=== PATIENT | female | born 1985 | race Caucasian/White ===

== ENCOUNTER 2017-03-02 05:03 | Inpatient (IN) | payer BC ==
[2017-03-02] MEDS ORDERED: RINGER'S SOLUTION,LACTATED 1,000 ML IV PRN ×2 (05:36)
[2017-03-02] MEDS ORDERED: OXYTOCIN 20 UNITS in RINGER'S SOLUTION,LACTATED 1,000 ML IV ONE (07:00)
[2017-03-02] MEDS ORDERED: ceFAZolin SODIUM/DEXTROSE,ISO 2 GM/50 ML BAG IV ONE (07:00)
[2017-03-02] MEDS ORDERED: RINGER'S SOLUTION,LACTATED 1,000 ML IV ONE (08:10)
[2017-03-02] MEDS ORDERED: SENNOSIDES 8.6 MG TABLET PO PRN (09:46)
[2017-03-02] MEDS ORDERED: CALCIUM CARBONATE 500 MG TAB.CHEW PO PRN (09:46)
[2017-03-02] MEDS ORDERED: BISACODYL 10 MG SUPP.RECT RC PRN (09:46)
[2017-03-02] MEDS ORDERED: DEXTROSE 5%-LACTATED RINGERS 1,000 ML IV PRN (09:46)
[2017-03-02] MEDS ORDERED: oxyCODONE HCL/ACETAMINOPHEN 1 TAB TABLET PO PRN (09:46)
[2017-03-02] MEDS ORDERED: SIMETHICONE 80 MG TAB.CHEW PO PRN (09:46)
--- NOTE | 2017-03-02 10:06 | OR ---
Operative Report - Dictated Report Narrative: Indication: 32-year-old 2 para 1 with prior section and dichorionic diamniotic twins desires repeat Pre Operative Diagnosis: 38 week intrauterine dichorionic diamniotic twin , prior section, breech/cephalic presentation Post Operative Diagnosis: Same. Procedure: Repeat low transverse section. Surgeon: Tiffani Gamino DO Lead Slot Technician: OR Staff Anesthesia: Spinal, TAP block Estimated Blood Loss: 1100 mL Urine Output: 200 mL clear urine Fluids Replacement: 1500 mL Drains: Pruett to gravity Surgical Complications: None Specimens: Placenta to freezer Findings: Diamniotic dichorionic twins with clear fluid upon amniotomy of both sacs. Twin A: Breech presentation born at 0844 on [birth year] with Apgars 8 and 9, weighing 3346 g. Twin B: Cephalic presentation born at 0846 on 03/02/2018 with Apgars 9 and 9, weighing 3666 g. Normal uterus, tubes, ovaries Technique: The patient was taken to the operating room and placed in dorsal supine position with a left lateral tilt. After adequate spinal anesthesia, pruett catheter inserted, SCDs placed, and 2 g of Ancef given preoperatively, the abdominal cavity was entered using sharp and blunt dissection. Two rolled laps were placed in the pericolic gutters on either side of the uterus. A transverse incision was made in the lower uterine segment and extended laterally and upwardly with digital traction. Clear fluid was noted upon amniotomy of twin A's gestation sac. The was delivered easily in double footling breech presentation. The cord was clamped and cut and was handed off to awaiting transmission assembler. Amniotomy was performed on twin B's sac noting clear fluid. Baby B was delivered in cephalic presentation. The placentas were allowed to deliver spontaneously. A disposable cord clamp was placed on the cord of twin A's placenta. The uterus was cleared of clot and debris. Uterine incision was closed with 0 Vicryl using a running stitch. A second imbricating layer was placed. Excellent hemostasis was noted. The rolled laps were removed from the abdominal cavitiy. The peritoneum was closed with a running 3-0 Monocryl. The same suture was used to approximate the rectus and pyramidalis muscles. The fascia was closed with a running 0 Vicryl. The subcutaneous layer was closed with a running 3-0 Monocryl. The same suture was used to approximate the subdermal layer. The skin was closed with a running 4-0 Monocryl and Dermabond. Sponge, lap, needle, and instrument count were correct x 2. Disposition: To post anesthesia care unit in good condition
--- NOTE | 2017-03-02 10:09 | OR ---
Anesthesia Procedure Note - Anesthesia Procedure Note Narrative: Vital Signs - Last Taken Temp 36.6 C 03/02/17 09:40 Pulse 88 03/02/17 10:00 Resp 20 03/02/17 10:00 BP 113/61 03/02/17 10:00 Pulse Ox 98 03/02/17 10:00 O2 Oxygen Delivery Method Room Air 03/02/17 10:06 ANESTHESIA PROCEDURE NOTE Date of procedure: 03/02/2017. Time of procedure: . Performed by: Abelino Up CRNA Flatwork Finisher: Estephanie Benites RN . Preprocedure diagnosis: Status post a section. Desire for postoperative analgesia.. Post procedure diagnosis: Same. Procedure: Ultrasound-guided bilateral tap block Indications: Postoperative analgesia. Findings: Patient in PACU status post . Patient's right lateral abdominal wall was prepped with ChloraPrep. Ultrasound was used to guide a 22- gauge 2 inch Stimuplex regional block needle into the fascial layer between the internal oblique and trans-abdominis muscles. A total of 20 mL of 0.25% Marcaine with epinephrine 1 200,000 was injected under ultrasound guidance. Procedure was repeated on the patient's left side. EBL: Minimal. Fluids: N/A. Specimen: N/A. Post procedure condition: The patient tolerated the procedure well. No complications were noted. Thank you for this consultation Abelino Up CRNA
[2017-03-02] MEDS: IBUPROFEN 800 MG TABLET PO PRN ×3 (11:21→23:14)
[2017-03-02] MEDS ORDERED: RHO(D) IMMUNE GLOBULIN 300 MCG DISP.SYRIN IM ONE (14:58)
[2017-03-02] MEDS: oxyCODONE HCL/ACETAMINOPHEN 1 TAB TABLET PO PRN ×3 (15:35→23:14)
[2017-03-02] MEDS: ENOXAPARIN SODIUM 40 MG/0.4 ML SYRG SC SCH (17:06)
[2017-03-02] MEDS: DOCUSATE SODIUM 100 MG CAPSULE PO SCH (21:24)
[2017-03-02] MEDS: FERROUS SULFATE 325 MG TABLET PO SCH (21:24)
[2017-03-02] MEDS: ASCORBIC ACID 500 MG TABLET PO SCH (21:24)
[2017-03-03] MEDS: oxyCODONE HCL/ACETAMINOPHEN 1 TAB TABLET PO PRN ×5 (02:36→15:28)
[2017-03-03] MEDS: IBUPROFEN 800 MG TABLET PO PRN ×2 (05:35→12:09)
[2017-03-03] MEDS: PRENATAL VITS96/IRON FUM/FOLIC 1 TAB TABLET PO SCH (09:08)
[2017-03-03] MEDS: ASCORBIC ACID 500 MG TABLET PO SCH ×2 (09:08→20:51)
[2017-03-03] MEDS: DOCUSATE SODIUM 100 MG CAPSULE PO SCH ×2 (09:08→20:51)
[2017-03-03] MEDS: SERTRALINE HCL 100 MG TABLET PO SCH (09:08)
[2017-03-03] MEDS: FERROUS SULFATE 325 MG TABLET PO SCH ×2 (09:08→20:51)
--- NOTE | 2017-03-03 10:21 | PN ---
Subjective - Date and Time Seen Date: 03/03/17 Time: 10:20 Objective - Vitals Vitals: Last Vital Signs Temp 36.0 C L 03/03/17 08:55 Pulse 70 03/03/17 08:55 Resp 16 03/03/17 08:55 BP 117/60 03/03/17 08:55 Pulse Ox 95 03/03/17 08:55 Patient denies complaints. Ambulating well. Tolerating regular diet. Pain well controlled. Lochia wnl. Abdomen - soft, appropriately tender Incision - clean, dry, intact Uterus - firm, at umbilicus -2 No calf tenderness Impression: Post op day #2 s/p repeat section. Twin - delivered. Morbid obesity. Plan: Continue routine post-operative/ care Cauti Physician Documentation - Urinary Catheter Management Uretheral ([place]) Date of Insertion: 03/02/17 Time of Insertion: 08:20 Date of Removal: 03/02/17 Time of Removal: 21:00
[2017-03-03] MEDS: ONDANSETRON HCL/PF 2 MG/ML VIAL IV PRN ×2 (15:13→19:17)
[2017-03-03] MEDS ORDERED: DEXTROSE 5%-LACTATED RINGERS 1,000 ML IV PRN (17:55)
[2017-03-03] MEDS: ENOXAPARIN SODIUM 40 MG/0.4 ML SYRG SC SCH (17:58)
[2017-03-03] MEDS ORDERED: BUTORPHANOL TARTRATE 2 MG/ML VIAL IV PRN (20:00)
[2017-03-03] MEDS ORDERED: METOCLOPRAMIDE HCL 5 MG/ML VIAL IV ONE (20:03)
[2017-03-03] MEDS: diphenhydrAMINE HCL 50 MG/ML VIAL IV PRN (20:49)
[2017-03-04] MEDS: IBUPROFEN 800 MG TABLET PO PRN ×3 (08:00→20:21)
[2017-03-04] MEDS: PRENATAL VITS96/IRON FUM/FOLIC 1 TAB TABLET PO SCH (08:00)
[2017-03-04] MEDS: DOCUSATE SODIUM 100 MG CAPSULE PO SCH ×2 (08:00→20:21)
[2017-03-04] MEDS: FERROUS SULFATE 325 MG TABLET PO SCH ×2 (08:00→20:21)
[2017-03-04] MEDS: ASCORBIC ACID 500 MG TABLET PO SCH ×2 (08:00→20:21)
[2017-03-04] MEDS: SERTRALINE HCL 100 MG TABLET PO SCH (08:00)
[2017-03-04] MEDS: oxyCODONE HCL/ACETAMINOPHEN 1 TAB TABLET PO PRN ×5 (08:00→23:12)
[2017-03-04] MEDS: diphenhydrAMINE HCL 50 MG/ML VIAL IV PRN (08:54)
[2017-03-04] MEDS ORDERED: HYDROCORTISONE 30 APPL TUBE TP PRN (13:13)
[2017-03-04] MEDS ORDERED: diphenhydrAMINE HCL 25 MG CAPSULE PO PRN (13:14)
--- NOTE | 2017-03-04 13:26 | PN ---
Subjective - Date and Time Seen Date: 03/04/17 Time: 13:23 Objective - Vitals Vitals: Last Vital Signs Temp 36.5 C 03/04/17 07:25 Pulse 75 03/04/17 07:25 Resp 18 03/04/17 07:25 BP 126/60 03/04/17 07:25 Pulse Ox 97 03/04/17 07:25 Patient had rough time yesterday with nausea and vomiting from taking Percocet on an empty stomach. She also has a rash on her abdomen and back from the sterile prep for the and spinal. Ambulating well. Tolerating regular diet. Pain well controlled. Lochia wnl. Abdomen - soft, appropriately tender. Maculopapular rash on abdomen and back consistent with contact dermatitis. Incision - clean, dry, intact Uterus - firm, at umbilicus -2 No calf tenderness Impression: Post op day #2 s/p repeat section for diamnionic dichorionic twin . Contact dermatitis. Morbid obesity. Plan: Continue routine post-operative/ care. Hydrocortisone cream topically and Benadryl orally. Cauti Physician Documentation - Urinary Catheter Management Uretheral ([place]) Date of Insertion: 03/02/17 Time of Insertion: 08:20 Date of Removal: 03/02/17 Time of Removal: 21:00
[2017-03-04] MEDS: ENOXAPARIN SODIUM 40 MG/0.4 ML SYRG SC SCH (17:42)
[2017-03-05] MEDS: oxyCODONE HCL/ACETAMINOPHEN 1 TAB TABLET PO PRN ×3 (04:46→14:04)
[2017-03-05] MEDS: IBUPROFEN 800 MG TABLET PO PRN ×2 (04:46→11:44)
[2017-03-05] MEDS: FERROUS SULFATE 325 MG TABLET PO SCH (10:02)
[2017-03-05] MEDS: SERTRALINE HCL 100 MG TABLET PO SCH (10:02)
[2017-03-05] MEDS: ASCORBIC ACID 500 MG TABLET PO SCH (10:02)
[2017-03-05] MEDS: DOCUSATE SODIUM 100 MG CAPSULE PO SCH (10:02)
[2017-03-05] MEDS: PRENATAL VITS96/IRON FUM/FOLIC 1 TAB TABLET PO SCH (10:03)
[2017-03-05 11:28] VITALS: BP 134/63
--- NOTE | 2017-03-07 10:44 | PN ---
Subjective - Date and Time Seen Date: 03/07/17 Time: 10:43 Objective - Vitals Vitals: Last Vital Signs Temp 36.3 C L 03/05/17 10:00 Pulse 85 03/05/17 10:00 Resp 20 03/05/17 10:00 BP 134/63 03/05/17 10:00 Pulse Ox 97 03/05/17 10:00 Late data governance consultant patient was seen in the morning of 03/05/2017.Patient denies complaints. Ambulating without difficulty. Tolerating regular diet. Pain well controlled. Lochia wnl. Contact dermatitis resolving Abdomen - soft, appropriately tender Incision - clean, dry, intact Uterus - firm, at umbilicus -3 No calf tenderness Impression: Post op day #3 s/p repeat section for diamniotic/ dichorionic twin . Contact dermatitis-resolving. Morbid obesity. Depression-stable. Plan: Routine discharge instructions Cauti Physician Documentation - Urinary Catheter Management Uretheral ([place]) Date of Insertion: 03/02/17 Time of Insertion: 08:20 Date of Removal: 03/02/17 Time of Removal: 21:00
== END 2017-03-05 14:30 | disposition home or self-care (01) | DRG 765 ==
LOC: OB 05:03
PROVIDERS: ADMIT Obstetrics & Gynecology; ATTEND Obstetrics & Gynecology
PROC: 10907ZC Drainage of Amniotic Fluid, Therapeutic from Products of Conception, Via Natural or Artificial Opening (ICD-10-PCS; 2017-03-02)
PROC: 4A1HXCZ Monitoring of Products of Conception, Cardiac Rate, External Approach (ICD-10-PCS; 2017-03-02)
PROC: 10D00Z1 Extraction of Products of Conception, Low, Open Approach (ICD-10-PCS; principal; 2017-03-02 08:00)
DX: O34.211 Maternal care for low transverse scar from previous cesarean delivery (principal); Z68.41 Body mass index [BMI] 40.0-44.9, adult; O30.043 Twin pregnancy, dichorionic/diamniotic, third trimester; L25.9 Unspecified contact dermatitis, unspecified cause; O32.8XX1 Maternal care for other malpresentation of fetus, fetus 1; O99.214 Obesity complicating childbirth; E66.01 Morbid (severe) obesity due to excess calories; Z37.2 Twins, both liveborn; Z3A.38 38 weeks gestation of pregnancy
CPT/HCPCS: 59025; 59510; 85460; 88307; J2405; J2790